=== PATIENT | female | born 1965 | race Caucasian/White ===

== ENCOUNTER 2017-07-09 15:56 | Emergency (ER) | payer OTHER ==
[~2017-07-09] VITALS: Ht 157.5 cm; Wt 69.3 kg
[2017-07-09] MEDS ORDERED: ASPIRIN 81 MG TABLET CHEW PO ONE (16:30)
[2017-07-09] MEDS ORDERED: ASPIRIN 81 MG TABLET CHEW ONE (16:38)
[2017-07-09 16:52] LABS: HEMATOCRIT 45.2 % (34.6-47.8); HEMOGLOBIN 15.4 g/dL (11.7-16.4); WHITE BLOOD COUNT 10.4 x10^3/uL (3.4-10)
[2017-07-09 16:55] LABS: PATH.CAST-FLAG NOT PRESENT; SPERM-FLAG NOT PRESENT; SRC-FLAG NOT PRESENT; XTAL-FLAG NOT PRESENT; YLC-FLAG NOT PRESENT
[2017-07-09 16:56] LABS: BLOOD UREA NITROGEN 11 mg/dL (7-18)
[2017-07-09 17:02] LABS: ASPARTATE AMINO TRANSFERASE 15 U/L (15-37)
[2017-07-09 17:03] LABS: IS PT STATUS REG ER OR PRE ER? YES
[2017-07-09 19:11] VITALS: BP 106/71
== END 2017-07-09 19:13 | disposition home or self-care (01) ==
LOC: ED 17:08
DX: R07.9 Chest pain, unspecified (principal)
CPT/HCPCS: 36415; 71010; 80053; 81001; 83690; 84484; 85025; 85379; 93005; 99285